=== PATIENT | male | born 1945 | race Caucasian/White ===

== ENCOUNTER 2018-12-24 13:03 | Emergency (ER) | payer SELFPAY ==
[~2018-12-24] VITALS: Ht 160 cm; Wt 82.0 kg
[2018-12-24 15:07] VITALS: BP 164/88
== END 2018-12-24 15:08 | disposition home or self-care (01) ==
LOC: ER 13:30
DX: Z76.0 Encounter for issue of repeat prescription (principal); I10 Essential (primary) hypertension; E78.00 Pure hypercholesterolemia, unspecified; Z86.19 Personal history of other infectious and parasitic diseases; Z98.1 Arthrodesis status
CPT/HCPCS: 99283